=== PATIENT | female | born 1985 | race Caucasian/White ===

== ENCOUNTER 2017-03-26 17:26 | Emergency (ER) | payer OTHER ==
[~2017-03-26] VITALS: Ht 154.9 cm; Wt 83.9 kg
[2017-03-26 17:50] VITALS: Ht 154.9 cm; Wt 83.9 kg
[2017-03-26 18:32] LABS: CARBON DIOXIDE 24.3 mmol/L (21-32); CHLORIDE SERUM 100 mmol/L (98-107); CREATININE SERUM 0.6 mg/dL (0.6-1.0); GFR1 > 60 mL/min; GLUCOSE SERUM 100 mg/dL (74-106); POTASSIUM SERUM 3.4 mmol/L (3.5-5.1); SODIUM SERUM 137 mmol/L (136-145)
[2017-03-26 19:28] VITALS: BP 130/86
== END 2017-03-26 19:28 | disposition home or self-care (01) ==
LOC: ED 17:26
PROVIDERS: Emergency Medicine
DX: O99.611 Diseases of the digestive system complicating pregnancy, first trimester (principal); K52.9 Noninfective gastroenteritis and colitis, unspecified; Z3A.01 Less than 8 weeks gestation of pregnancy; Z90.49 Acquired absence of other specified parts of digestive tract
CPT/HCPCS: J2405

== ENCOUNTER 2017-05-09 19:16 | Emergency (ER) | payer OTHER ==
[~2017-05-09] VITALS: Ht 162.6 cm; Wt 83.5 kg
[2017-05-09 19:23] VITALS: Ht 162.6 cm; Wt 83.5 kg
[2017-05-09 21:14] LABS: BASOPHIL % 0.3 % (0-2); PLATELET COUNT 336 x10^3mcL (130-400); RED CELL DISTRIBUTION WIDTH 13.8 % (11.5-14.5)
[2017-05-09 21:25] LABS: CALCIUM 9.2 mg/dL (8.5-10.1); CHLORIDE SERUM 101 mmol/L (98-107); CREATININE SERUM 0.5 mg/dL (0.6-1.0); GFR1 > 60 mL/min; GLUCOSE SERUM 87 mg/dL (74-106); POTASSIUM SERUM 3.2 mmol/L (3.5-5.1); SODIUM SERUM 135 mmol/L (136-145)
[2017-05-09 21:30] LABS: ALBUMIN 3.5 g/dL (3.4-5.0); ALKALINE PHOSPHATASE 50 U/L (46-116); ALT/SGPT 34 U/L (14-59); AST/SGOT 22 U/L (15-37); BILIRUBIN TOTAL 0.27 mg/dL (0.20-1.00); TOTAL PROTEIN, SERUM 7.7 g/dL (6.4-8.2)
[2017-05-09 22:28] LABS: UA SPECIFIC GRAVITY <=1.005 (1.005-1.035); microscopic required? YES; urine erythrocyte 1+ (NEGATIVE)
[2017-05-09 23:21] VITALS: BP 108/61
== END 2017-05-09 23:21 | disposition home or self-care (01) ==
LOC: ED 19:16
PROVIDERS: Emergency Medicine
DX: O20.0 Threatened abortion (principal); E87.6 Hypokalemia; Z3A.14 14 weeks gestation of pregnancy
CPT/HCPCS: 36415

== ENCOUNTER 2018-04-18 11:46 | Emergency (ER) | payer OTHER ==
[~2018-04-18] VITALS: Ht 154.9 cm; Wt 77.1 kg
[2018-04-18 11:52] VITALS: Ht 154.9 cm; Wt 77.1 kg
[2018-04-18 13:52] VITALS: BP 115/80
== END 2018-04-18 13:52 | disposition home or self-care (01) ==
LOC: ED 11:46
DX: S61.012A Laceration without foreign body of left thumb without damage to nail, initial encounter (principal); W26.0XXA Contact with knife, initial encounter; Y93.89 Activity, other specified; Y92.89 Other specified places as the place of occurrence of the external cause; Y99.8 Other external cause status
CPT/HCPCS: 90715; J2001

== ENCOUNTER 2018-04-28 14:20 | Emergency (ER) | payer OTHER ==
[~2018-04-28] VITALS: Ht 154.9 cm; Wt 76.7 kg
[2018-04-28 14:29] VITALS: Ht 154.9 cm; Wt 76.7 kg
[2018-04-28 15:01] VITALS: BP 118/69
== END 2018-04-28 15:01 | disposition home or self-care (01) ==
LOC: ED 14:20
DX: S61.012D Laceration without foreign body of left thumb without damage to nail, subsequent encounter (principal)

== ENCOUNTER 2019-10-17 08:56 | Emergency (ER) | payer OTHER, SELFPAY ==
[~2019-10-17] VITALS: Ht 154.9 cm; Wt 81.6 kg
[2019-10-17 09:25] VITALS: Ht 154.9 cm; Wt 81.6 kg
[2019-10-17 10:55] VITALS: BP 121/67
== END 2019-10-17 10:55 | disposition home or self-care (01) ==
LOC: ED 08:56
DX: A08.4 Viral intestinal infection, unspecified (principal); Z20.828 Contact with and (suspected) exposure to other viral communicable diseases
CPT/HCPCS: J1885; J2405; J7030; U0003-CS

== ENCOUNTER 2019-10-21 23:58 | Emergency (ER) | payer OTHER ==
[~2019-10-21] VITALS: Ht 154.9 cm; Wt 83.0 kg
[2019-10-22 00:03] VITALS: Ht 154.9 cm; Wt 83.0 kg
[2019-10-22 00:43] LABS: BASOPHIL % 0.4 % (0-2); PLATELET COUNT 376 x10^3mcL (130-400); RED CELL DISTRIBUTION WIDTH 12.7 % (11.5-14.5)
[2019-10-22 01:03] LABS: CHLORIDE SERUM 101 mmol/L (98-107); GFR1 > 60 mL/min; POTASSIUM SERUM 3.8 mmol/L (3.5-5.1); SODIUM SERUM 139 mmol/L (136-145)
[2019-10-22 01:08] LABS: ALKALINE PHOSPHATASE 91 U/L (46-116); ALT/SGPT 126 U/L (14-59); AST/SGOT 65 U/L (15-37); BILIRUBIN TOTAL 0.33 mg/dL (0.20-1.00); LIPASE 106 IU/L (73-393); TOTAL PROTEIN, SERUM 7.9 g/dL (6.4-8.2)
[2019-10-22 01:10] LABS: CALCIUM 9.5 mg/dL (8.5-10.1); CARBON DIOXIDE 31.2 mmol/L (21-32); CREATININE SERUM 0.8 mg/dL (0.6-1.0); GLUCOSE SERUM 116 mg/dL (74-106)
[2019-10-22 03:04] VITALS: BP 110/72
== END 2019-10-22 03:00 | disposition home or self-care (01) ==
LOC: ED 23:58
PROVIDERS: Emergency Medicine
DX: A08.4 Viral intestinal infection, unspecified (principal)
CPT/HCPCS: J2270; J2405; J7030